=== PATIENT | female | born 1955 | race Two or more races ===

== ENCOUNTER 2018-03-22 07:53 | Day surgery (SDC) | payer OTHER ==
[2018-03-22 08:49] VITALS: BMI 27.2
[2018-03-22] MEDS ORDERED: Lactated Ringer's 500 ML IV ONE (08:53)
[2018-03-22] MEDS ORDERED: Propofol 10 mg/ml Inj (20 ML) ONE (10:54)
[2018-03-22 11:11] VITALS: TEMP 98; O2SAT 100
[2018-03-22 11:37] VITALS: BP 140/78; PULSE 80; RESP 18
== END 2018-03-22 12:11 | disposition home or self-care (01) ==
LOC: H.ENDO 07:53
PROVIDERS: ATTEND Internal Medicine Gastroenterology
DX: Z12.11 Encounter for screening for malignant neoplasm of colon (principal); K63.5 Polyp of colon; K57.30 Diverticulosis of large intestine without perforation or abscess without bleeding; K64.8 Other hemorrhoids
CPT/HCPCS: 45380; 88305; J2001; J2704; J7120